=== PATIENT | male | born 1975 | race American Indian/Alaskan Native ===

== ENCOUNTER 2019-01-19 19:18 | Emergency (ER) | payer OTHER ==
[2019-01-19 20:09] VITALS: BP 148/85
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
== END 2019-01-19 21:01 | disposition left against medical advice (07) ==
LOC: EEVIPCON 19:18 → ED 19:18
DX: F23 Brief psychotic disorder (principal); E78.00 Pure hypercholesterolemia, unspecified; Z91.040 Latex allergy status; Z88.8 Allergy status to other drugs, medicaments and biological substances
CPT/HCPCS: 99283

== ENCOUNTER 2019-01-20 12:40 | Emergency (ER) | payer OTHER ==
[2019-01-20] MEDS ORDERED: GEODON IM ONE ×2 (13:07→20:33)
[2019-01-20 14:38] LABS: Basophils % (Auto) 0.9 % (0.0-1.8); Hematocrit 40.9 % (35.5-45.6); Hemoglobin 13.7 gm/dl (11.8-15.2); Lymphocytes # (Auto) 1.4 K/mm3 (1.2-5.4); Lymphocytes % (Auto) 39.6 % (13.4-35.0); Mean Corpuscular HGB Conc 34 % (32-34); Mean Corpuscular Volume 83 fl (84-94); Monocytes # (Auto) 0.4 K/mm3 (0.0-0.8); Monocytes % (Auto) 10.3 % (0.0-7.3); Platelet Count 211 K/mm3 (140-440); Red Blood Count 4.94 M/mm3 (3.65-5.03); Red Cell Distribution Width 15.8 % (13.2-15.2)
--- NOTE | 2019-01-20 14:58 | Emergency Department Report ---
ED General Adult HPI - General Chief complaint: Psych Stated complaint: ALTERED MH Time Seen by Provider: 01/20/19 13:07 Source: police Mode of arrival: Ambulatory Limitations: No Limitations - History of Present Illness Initial comments: Patient presents to the emergency department via police for psychiatric evaluation. Per the officer in the room the patient has been having abnormal behavior at home and exhibiting paranoia. The patient does have a history of schizophrenia. Patient states that voices are telling him to hurt himself. Per third libertarian the states this started within the last day or so -: Sudden Severity scale (0 -10): 0 Improves with: none Worsens with: none Associated Symptoms: denies other symptoms Treatments Prior to Arrival: none - Related Data Home Medications Medication Instructions Recorded Confirmed Last Taken No Known Home Medications [No 04/09/14 04/09/14 Unknown Reported Home Medications] Allergies Allergy/AdvReac Type Severity Reaction Status Date / Time chloroquine Allergy Itching Verified 04/09/14 05:22 latex Allergy Itching Verified 04/09/14 05:22 ED Review of Systems ROS: Stated complaint: ALTERED MH Other details as noted in HPI Comment: All other systems reviewed and negative Constitutional: denies: chills, fever Eyes: denies: eye pain, eye discharge, vision change ENT: denies: ear pain, throat pain Respiratory: denies: cough, shortness of breath, wheezing Cardiovascular: denies: chest pain, palpitations Endocrine: no symptoms reported Gastrointestinal: denies: abdominal pain, nausea, diarrhea Genitourinary: denies: urgency, dysuria Musculoskeletal: denies: back pain, joint swelling, arthralgia Skin: denies: rash, lesions Neurological: denies: headache, weakness, paresthesias Psychiatric: suicidal thoughts. denies: anxiety, depression Hematological/Lymphatic: denies: easy bleeding, easy bruising ED Past Medical Hx - Past Medical History Previous Medical History?: No Additional medical history: HIGH CHOLESTEROL - Social History Smoking Status: Unknown if ever smoked - Medications Home Medications: Home Medications Medication Instructions Recorded Confirmed Last Taken Type No Known Home Medications [No 04/09/14 04/09/14 Unknown History Reported Home Medications] ED Physical Exam - General Limitations: No Limitations General appearance: alert, in no apparent distress, other (aggressive behavior) - Head Head exam: Present: atraumatic, normocephalic - Eye Eye exam: Present: normal appearance - ENT ENT exam: Present: mucous membranes moist - Neck Neck exam: Present: normal inspection - Respiratory Respiratory exam: Present: normal lung sounds bilaterally. Absent: respiratory distress - Cardiovascular Cardiovascular Exam: Present: regular rate, normal rhythm. Absent: systolic murmur, diastolic murmur, rubs, gallop - GI/Abdominal GI/Abdominal exam: Present: soft, normal bowel sounds. Absent: distended, tenderness - Rectal Rectal exam: Present: deferred - Extremities Exam Extremities exam: Present: normal inspection - Back Exam Back exam: Present: normal inspection - Neurological Exam Neurological exam: Present: alert, oriented X3, CN II-XII intact. Absent: motor sensory deficit - Psychiatric Psychiatric exam: Present: suicidal ideation (tangential speech with paranoia) - Skin Skin exam: Present: warm, dry, intact, normal color. Absent: rash ED Course Vital Signs 01/20/19 01/20/19 12:56 13:30 Temperature 97.7 F Pulse Rate 113 H Respiratory 17 20 Rate Blood Pressure 170/145 [Left] O2 Sat by Pulse 97 97 Oximetry ED Medical Decision Making - Lab Data Result diagrams: 01/20/19 14:18 01/20/19 14:18 Lab Results 01/20/19 01/20/19 01/20/19 Range/Units 14:18 14:18 14:18 WBC 3.5 L (4.5-11.0) K/mm3 RBC 4.94 (3.65-5.03) M/mm3 Hgb 13.7 (11.8-15.2) gm/dl Hct 40.9 (35.5-45.6) % MCV 83 L (84-94) fl MCH 28 (28-32) pg MCHC 34 (32-34) % RDW 15.8 H (13.2-15.2) % Plt Count 211 (140-440) K/mm3 Lymph % (Auto) 39.6 H (13.4-35.0) % Wells % (Auto) 10.3 H (0.0-7.3) % Eos % (Auto) 0.0 (0.0-4.3) % Baso % (Auto) 0.9 (0.0-1.8) % Lymph # 1.4 (1.2-5.4) K/mm3 Wells # 0.4 (0.0-0.8) K/mm3 Eos # 0.0 (0.0-0.4) K/mm3 Baso # 0.0 (0.0-0.1) K/mm3 Seg Neutrophils % 49.2 (40.0-70.0) % Seg Neutrophils # 1.7 L (1.8-7.7) K/mm3 Sodium 142 (137-145) mmol/L Potassium 3.4 L (3.6-5.0) mmol/L Chloride 100.4 (98-107) mmol/L Carbon Dioxide 26 (22-30) mmol/L Anion Gap 19 mmol/L BUN 21 H (9-20) mg/dL Creatinine 1.1 (0.8-1.5) mg/dL Estimated GFR > 60 ml/min BUN/Creatinine Ratio 19 % Glucose 107 H (75-100) mg/dL Calcium 9.4 (8.4-10.2) mg/dL Total Bilirubin 0.30 (0.1-1.2) mg/dL AST 115 H (5-40) units/L ALT 55 (7-56) units/L Alkaline Phosphatase 59 (35-129) units/L Total Protein 7.4 (6.3-8.2) g/dL Albumin 4.8 (3.9-5) g/dL Albumin/Globulin Ratio 1.8 % Salicylates < 0.3 L (2.8-20.0) mg/dL Acetaminophen (10.0-30.0) ug/mL Plasma/Serum Alcohol (0-0.07) % 01/20/19 01/20/19 Range/Units 14:18 14:18 WBC (4.5-11.0) K/mm3 RBC (3.65-5.03) M/mm3 Hgb (11.8-15.2) gm/dl Hct (35.5-45.6) % MCV (84-94) fl MCH (28-32) pg MCHC (32-34) % RDW (13.2-15.2) % Plt Count (140-440) K/mm3 Lymph % (Auto) (13.4-35.0) % Wells % (Auto) (0.0-7.3) % Eos % (Auto) (0.0-4.3) % Baso % (Auto) (0.0-1.8) % Lymph # (1.2-5.4) K/mm3 Wells # (0.0-0.8) K/mm3 Eos # (0.0-0.4) K/mm3 Baso # (0.0-0.1) K/mm3 Seg Neutrophils % (40.0-70.0) % Seg Neutrophils # (1.8-7.7) K/mm3 Sodium (137-145) mmol/L Potassium (3.6-5.0) mmol/L Chloride (98-107) mmol/L Carbon Dioxide (22-30) mmol/L Anion Gap mmol/L BUN (9-20) mg/dL Creatinine (0.8-1.5) mg/dL Estimated GFR ml/min BUN/Creatinine Ratio % Glucose (75-100) mg/dL Calcium (8.4-10.2) mg/dL Total Bilirubin (0.1-1.2) mg/dL AST (5-40) units/L ALT (7-56) units/L Alkaline Phosphatase (35-129) units/L Total Protein (6.3-8.2) g/dL Albumin (3.9-5) g/dL Albumin/Globulin Ratio % Salicylates (2.8-20.0) mg/dL Acetaminophen < 5.0 L (10.0-30.0) ug/mL Plasma/Serum Alcohol < 0.01 (0-0.07) % - Medical Decision Making 1013 applied Medically cleared awaiting placement Critical care attestation.: If time is entered above; I have spent that time in minutes in the direct care of this critically ill patient, excluding procedure time. ED Disposition Clinical Impression: Paranoia (psychosis) Disposition: DC/TX-65 PSY HOSP/PSY UNIT Is pt being admited?: No Does the pt Need Aspirin: No Condition: Stable
[2019-01-20 15:00] LABS: Alanine Aminotransferase 55 units/L (7-56); Albumin 4.8 g/dL (3.9-5); BUN/Creatinine Ratio 19; Blood Urea Nitrogen 21 mg/dL (9-20); Calcium 9.4 mg/dL (8.4-10.2); Hemolysis Index 16
[2019-01-20] MEDS ORDERED: ATIVAN IM ONE (20:33)
[2019-01-20] MEDS ORDERED: ATIVAN ONE (20:36)
[2019-01-20] MEDS ORDERED: WATER FOR INJ Sterile (PF) 10 ML ONE (20:38)
[2019-01-21 01:22] LABS: Bilirubin,Urine NEG (Negative); Blood,Urine NEG (Negative); Color,Urine Yellow (Yellow); Mucus,Urine FEW /HPF; Protein,Urine <15 mg/dL mg/dL (Negative); Urobilinogen,Urine < 2.0 mg/dL (<2.0)
[2019-01-21 09:10] LABS: Bilirubin,Urine NEG (Negative); Blood,Urine NEG (Negative); Color,Urine Yellow (Yellow); Mucus,Urine FEW /HPF; Protein,Urine <15 mg/dL mg/dL (Negative)
--- NOTE | 2019-01-21 09:15 | Consultation ---
History of Present Illness - Reason for Consult Consult date: 01/21/19 Reason for consult: Mental Health EValuation Requesting physician: SHOSHANA SLADE - Chief Complaint Chief complaint: "I'm sacred" - History of Present Psychiatric Illness 43 y.o. male who presented to the ER for bizarre behavior. The patient was paranoid throughout the assessment. He appeared preoccupied. He would not answer questions logically. The patient had to be redirected several times to keep him on topic. The patient did state that "Al" is after him. At this time, the patient is a poor historian. No gestures of SI/HI's. Medications and Allergies Allergies Allergy/AdvReac Type Severity Reaction Status Date / Time chloroquine Allergy Itching Verified 04/09/14 05:22 latex Allergy Itching Verified 04/09/14 05:22 Home Medications Medication Instructions Recorded Confirmed Last Taken Type Lisinopril [Zestril] 20 mg PO QDAY 01/20/19 01/20/19 Unknown History clonazePAM 0.5 mg PO PRN PRN 01/20/19 01/20/19 Unknown History hydroCHLOROthiazide 25 mg PO QDAY 01/20/19 01/20/19 Unknown History [Hydrochlorothiazide] Past psychiatric history - Past Medical History Past Medical History: other (Unable to obtain ) Past Surgical History: Other (Unable to obtain ) - past Psychiatric treatment and history psychiatric treatment history: Unable to obtain a psy and fam psy hx. - Social History Social history: other (Unable to obtain ) Mental Status Exam - Vital signs Last Vital Signs Temp 97.6 F 01/21/19 07:37 Pulse 106 H 01/21/19 07:37 Resp 18 01/21/19 07:37 BP 162/102 01/21/19 07:37 Pulse Ox 98 01/21/19 07:37 - Exam Narrative exam: MSE: Appearance: in hospital attire Behavior: regular eye contact Speech: rapid Mood: anxious Affect: congruent to mood Thought Process: disorganized Thought Content: no gestures of SI/HI's, paranoid Motor Activity: sitting up in bed Cognition: A/O x 3 Insight: poor Judgment: poor R Results Result Diagrams: 01/20/19 14:18 01/20/19 14:18 Abnormal lab results 01/20/19 01/20/19 01/20/19 Range/Units 14:18 14:18 14:18 WBC 3.5 L (4.5-11.0) K/mm3 MCV 83 L (84-94) fl RDW 15.8 H (13.2-15.2) % Lymph % (Auto) 39.6 H (13.4-35.0) % Linn % (Auto) 10.3 H (0.0-7.3) % Seg Neutrophils # 1.7 L (1.8-7.7) K/mm3 Potassium 3.4 L (3.6-5.0) mmol/L BUN 21 H (9-20) mg/dL Glucose 107 H (75-100) mg/dL AST 115 H (5-40) units/L Salicylates < 0.3 L (2.8-20.0) mg/dL Acetaminophen (10.0-30.0) ug/mL 01/20/19 Range/Units 14:18 WBC (4.5-11.0) K/mm3 MCV (84-94) fl RDW (13.2-15.2) % Lymph % (Auto) (13.4-35.0) % Linn % (Auto) (0.0-7.3) % Seg Neutrophils # (1.8-7.7) K/mm3 Potassium (3.6-5.0) mmol/L BUN (9-20) mg/dL Glucose (75-100) mg/dL AST (5-40) units/L Salicylates (2.8-20.0) mg/dL Acetaminophen < 5.0 L (10.0-30.0) ug/mL All other labs normal. Assessment and Plan Assessment and plan: Impression: Unspecified Psychosis. Today the patient was paranoid throughout the assessment. AST elevated. UDS is pending. DDx R/O Delirium Recommendation/Plan: Continue 1013 and gather collateral information to help de termine proper treatment. Start Buspar 7.5 mg PO BID for anxiety and Thorazine 25 mg IM Q8hrs PRN for acute psychosis. Ammonia ordered. Dispo: The patient was referred to inpatient psy services. Staffed with Dr Isrrael Hartman,
[2019-01-21] MEDS ORDERED: THORAZINE IM PRN (09:21)
[2019-01-21 09:41] LABS: Amphetamine Screen,Urine PRESUMPTIVE NEGATIVE; Benzodiazepines Screen,Urine PRESUMPTIVE NEGATIVE; Cannabinoid Screen,Urine PRESUMPTIVE NEGATIVE; Cocaine Screen,Urine PRESUMPTIVE NEGATIVE; Methadone Screen,Urine PRESUMPTIVE NEGATIVE; Opiate Screen,Urine PRESUMPTIVE NEGATIVE
[2019-01-21] MEDS ORDERED: CATAPRES PO ONE (09:55)
[2019-01-21] MEDS ORDERED: NORVASC PO SCH (10:00)
[2019-01-21] MEDS ORDERED: BUSPAR PO SCH (10:00)
[2019-01-21] MEDS ORDERED: HCTZ PO SCH (10:00)
[2019-01-21 11:47] VITALS: BP 134/92
[2019-01-21] MEDS ORDERED: GEODON IM ONE ×2 (15:50→16:07)
[2019-01-21] MEDS ORDERED: WATER FOR INJ Sterile (PF) 10 ML ONE (15:50)
== END 2019-01-21 16:51 ==
LOC: ED 12:40 → EEVIPCON 12:40 → ED 01-21 16:51
DX: F22 Delusional disorders (principal); F20.9 Schizophrenia, unspecified; E78.00 Pure hypercholesterolemia, unspecified; Z88.8 Allergy status to other drugs, medicaments and biological substances; Z91.040 Latex allergy status
CPT/HCPCS: 36415; 80053; 80307; 81001; 82140; 85025; 96372; 99284; G0480; J2060; J3230; J3486; 80320

== ENCOUNTER 2019-01-21 16:06 | Inpatient (IN) | payer OTHER ==
[2019-01-21] MEDS: BENADRYL IM PRN (18:45)
[2019-01-21] MEDS: ATIVAN IM PRN (18:45)
[2019-01-22] MEDS: BENADRYL IM PRN ×2 (02:05→15:04)
[2019-01-22] MEDS: ATIVAN IM PRN ×2 (02:06→15:05)
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
[2019-01-23] MEDS: ATIVAN IM PRN (00:49)
[2019-01-23] MEDS: BENADRYL IM PRN (00:49)
--- NOTE | 2019-01-23 19:00 | Progress Note ---
Subjective Date of service: 01/23/19 Principal diagnosis: Paranoid Schizophrenia Subjective Comment: Patient is talkative, grandiose, delusional, paranoid, tangential and refuses to take his medications. He believes people including his , extended family and hospital staffs are conspiring against him. He denies hallucinations, SI/HI. Objective - Criteria for Continued Treatment Criteria for Continued Treatment: Improving Level of Functioning, Understanding Diagnosis and need for Medication, Improving Treatment / Medication Compliance, Confronting Denial of Illness, Stablizing Level of Functioning, Improving Emotional/Socia - Mental Status Mental Status: Alert - Objective Observation Participation Level: Minimal Reason(s) For Not Participating: Behaviors Assessment and Plan - Patient Problems (1) Paranoid schizophrenia Current Visit: Yes Status: Acute Plan to address problem: Continue inpatient psychiatric treatment for medication adjustment and close monitoring The patient's behavior, mood, sleep and appetite will be closely monitored. Patient will be enrolled in individual and group therapeutic sessions and encouraged to attend. Patient will be provided with a safe and structured environment. Patient's physical health needs will be addressed by the Hospitalist. Social Assessment will be completed and the Gear Cutter will work with patient and family to ensure a suitable and safe disposition Medication adjustment will be made as clinically indicated Continue Seroquel 200mg bid for Schizophrenia Add Depakote ER 1000mg qhs as patient is manic The patient agreed on the treatment plan, understood the risk, benefit, alternative treatment, potential consequence of no treatment, and gave informed consent.
[2019-01-24] MEDS: ATIVAN IM PRN (03:57)
[2019-01-24] MEDS: BENADRYL IM PRN (03:58)
[2019-01-25] MEDS: HALDOL IM PRN (06:53)
[2019-01-25] MEDS: ATIVAN IM PRN (06:54)
--- NOTE | 2019-01-25 06:55 | Progress Note ---
Subjective Date of service: 01/24/19 Principal diagnosis: Paranoid Schizophrenia Subjective Comment: No improvement. Patient continues to be talkative, grandiose, delusional, paranoid, tangential and refuses to take his medications. He believes people including his , extended family and hospital staffs are conspiring against him. He denies hallucinations, SI/HI. His visited and encouraged him to take his medications. Objective - Criteria for Continued Treatment Criteria for Continued Treatment: Improving Level of Functioning, Understanding Diagnosis and need for Medication, Improving Treatment / Medication Compliance, Confronting Denial of Illness, Stablizing Level of Functioning, Improving Emotional/Socia - Mental Status Mental Status: Oriented x 3 - Objective Observation Participation Level: Minimal Reason(s) For Not Participating: Behaviors Assessment and Plan - Patient Problems (1) Paranoid schizophrenia Current Visit: Yes Status: Acute Plan to address problem: Continue inpatient psychiatric treatment for medication adjustment and close monitoring The patient's behavior, mood, sleep and appetite will be closely monitored. Patient will be enrolled in individual and group therapeutic sessions and encouraged to attend. Patient will be provided with a safe and structured environment. Patient's physical health needs will be addressed by the Hospitalist. Social Assessment will be completed and the Exercise Physiology Professor will work with patient and family to ensure a suitable and safe disposition Medication adjustment will be made as clinically indicated Continue Seroquel 200mg bid for Schizophrenia Continue Depakote ER 1000mg qhs as patient is manic The patient agreed on the treatment plan, understood the risk, benefit, alternative treatment, potential consequence of no treatment, and gave informed consent.
[2019-01-25] MEDS ORDERED: HALDOL PO PRN (10:27)
--- NOTE | 2019-01-25 10:41 | Progress Note ---
Subjective Date of service: 01/25/19 Principal diagnosis: Paranoid Schizophrenia Subjective Comment: Patient is disruptive, disorganized and bizarre. He urinates on the floor by the Nursing station. He is talkative, grandiose, delusional, paranoid, tangential and refuses to take Depakote. He is paranoid. He denies hallucinations. No SI/HI. Objective - Criteria for Continued Treatment Criteria for Continued Treatment: Improving Level of Functioning, Understanding Diagnosis and need for Medication, Improving Treatment / Medication Compliance, Stablizing Level of Functioning, Improving Emotional/Socia - Mental Status Mental Status: Oriented x 3 - Objective Observation Participation Level: Minimal Reason(s) For Not Participating: Behaviors Assessment and Plan - Patient Problems (1) Paranoid schizophrenia Current Visit: Yes Status: Acute Plan to address problem: Continue inpatient psychiatric treatment for medication adjustment and close monitoring The patient's behavior, mood, sleep and appetite will be closely monitored. Patient will be enrolled in individual and group therapeutic sessions and encouraged to attend. Patient will be provided with a safe and structured environment. Patient's physical health needs will be addressed by the Hospitalist. Social Assessment will be completed and the Acid Plant Helper will work with patient and family to ensure a suitable and safe disposition Medication adjustment will be made as clinically indicated Increase Seroquel to 300mg bid for Schizophrenia Continue Depakote ER 1000mg qhs as patient is manic The patient agreed on the treatment plan, understood the risk, benefit, alternative treatment, potential consequence of no treatment, and gave informed consent.
--- NOTE | 2019-01-26 10:27 | Progress Note ---
Subjective Date of service: 01/26/19 Principal diagnosis: Paranoid Schizophrenia Subjective Comment: Patient is uncooperative and wants to leave the hospital, hence 1014 was initiated by me as he continues to be disruptive, disorganized and bizarre. He is talkative, grandiose, delusional, paranoid, tangential and refuses to take Depakote. He is paranoid. He denies hallucinations. No SI/HI. Objective - Criteria for Continued Treatment Criteria for Continued Treatment: Improving Level of Functioning, Understanding Diagnosis and need for Medication, Improving Treatment / Medication Compliance, Confronting Denial of Illness, Stablizing Level of Functioning, Improving Emotional/Socia - Mental Status Mental Status: Oriented x 3 - Objective Observation Participation Level: Minimal Reason(s) For Not Participating: Behaviors Assessment and Plan - Patient Problems (1) Paranoid schizophrenia Current Visit: Yes Status: Acute Plan to address problem: Continue inpatient psychiatric treatment for medication adjustment and close monitoring The patient's behavior, mood, sleep and appetite will be closely monitored. Patient will be enrolled in individual and group therapeutic sessions and e ncouraged to attend. Patient will be provided with a safe and structured environment. Patient's physical health needs will be addressed by the Hospitalist. Social Assessment will be completed and the Wax Room Supervisor will work with patient and family to ensure a suitable and safe disposition Medication adjustment will be made as clinically indicated Continue Seroquel to 300mg bid for Schizophrenia Continue Depakote ER 1000mg qhs as patient is manic The patient agreed on the treatment plan, understood the risk, benefit, alternative treatment, potential consequence of no treatment, and gave informed consent.
[2019-01-26] MEDS: ATIVAN PO PRN (21:45)
--- NOTE | 2019-01-27 10:32 | Progress Note ---
Subjective Date of service: 01/27/19 Principal diagnosis: Paranoid Schizophrenia Subjective Comment: Patient is calmer but continues to be delusional, and very paranoid. He is still refusing to take Depakote and only takes 100mg of prescribed 300mg Seroquel. He denies hallucinations. No SI/HI. Objective - Criteria for Continued Treatment Criteria for Continued Treatment: Improving Level of Functioning, Understanding Diagnosis and need for Medication, Improving Treatment / Medication Compliance, Confronting Denial of Illness, Stablizing Level of Functioning, Improving Emotional/Socia - Mental Status Mental Status: Oriented x 3 - Objective Observation Participation Level: Minimal Reason(s) For Not Participating: Behaviors Assessment and Plan - Patient Problems (1) Paranoid schizophrenia Current Visit: Yes Status: Acute Plan to address problem: Continue inpatient psychiatric treatment for medication adjustment and close monitoring The patient's behavior, mood, sleep and appetite will be closely monitored. Patient will be enrolled in individual and group therapeutic sessions and encouraged to attend. Patient will be provided with a safe and structured environment. Patient's physical health needs will be addressed by the Hospitalist. Social Assessment will be completed and the It Associate will work with patient and family to ensure a suitable and safe disposition Medication adjustment will be made as clinically indicated Continue Seroquel to 300mg bid for Schizophrenia Continue Depakote ER 1000mg qhs as patient is manic The patient agreed on the treatment plan, understood the risk, benefit, alternative treatment, potential consequence of no treatment, and gave informed consent.
[2019-01-27] MEDS ORDERED: HYDROCHLOROTHIAZIDE 25 MG PO PRN (12:52)
--- NOTE | 2019-01-27 12:53 | Consultation ---
History of Present Illness - Reason for Consult Consult date: 01/27/19 HTN Requesting physician: LI STOREY - History of Present Illness 43 YO Male with HTN, HLD admitted to [facility] for Schizophrenia. Pt seen and evaluated in his room. Pt denies fever, chills, CP, Palpitations, NVD, Unilateral leg pain, calf pain, productive cough, skin rash or recent ill contacts. Pt resting comfortably and is cooperative with exam and interview. No reported nursing events. 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 No legal problems. No access to guns. ) Family history: hypertension Medications and Allergies Allergies Allergy/AdvReac Type Severity Reaction Status Date / Time chloroquine Allergy Itching Verified 04/09/14 05:22 latex Allergy Itching Verified 04/09/14 05:22 Home Medications Medication Instructions Recorded Confirmed Last Taken Type Lisinopril [Zestril] 20 mg PO QDAY 01/20/19 01/22/19 Unknown History clonazePAM 0.5 mg PO PRN PRN 01/20/19 01/22/19 Unknown History hydroCHLOROthiazide 25 mg PO PRN PRN 01/20/19 01/27/19 Unknown History [Hydrochlorothiazide] Atorvastatin 20 mg PO QHS 01/22/19 01/22/19 Unknown History Flomax 0.4 mg PO DAILY 01/22/19 01/22/19 Unknown History Active Meds: Active Medications Diphenhydramine HCl (Benadryl) 50 mg IM Q6H PRN PRN Reason: AGITATION Last Admin: 01/24/19 03:58 Dose: 50 mg Documented by: Divalproex Sodium (Depakote Er) 1,000 mg PO QPM MEÑO Last Admin: 01/26/19 18:55 Dose: Not Given Documented by: Haloperidol (Haldol) 5 mg PO Q6H PRN PRN Reason: Agitation Haloperidol Lactate (Haldol) 5 mg IM Q6H PRN PRN Reason: Agitation Last Admin: 01/25/19 06:53 Dose: 5 mg Documented by: Lisinopril (Zestril) 20 mg PO QDAY [facility] Lorazepam (Ativan) 2 mg IM Q6H PRN PRN Reason: Agitation Last Admin: 01/25/19 06:54 Dose: 2 mg Documented by: Lorazepam (Ativan) 2 mg PO Q6H PRN PRN Reason: Agitation Last Admin: 01/26/19 21:45 Dose: 2 mg Documented by: Miscellaneous Medication (Atorvastatin) 20 mg PO QHS [facility] Miscellaneous Medication (Hydrochlorothiazide [Hydrochlorothiazide]) 25 mg PO PRN PRN PRN Reason: Increased Blood Pressure Miscellaneous Medication (Flomax) 0.4 mg PO DAILY [facility] Quetiapine Fumarate (Seroquel) 300 mg PO BID [facility] Last Admin: 01/27/19 09:26 Dose: 100 mg Documented by: Review of Systems Constitutional: no weight loss, no weight gain, no fever, no chills Ears, nose, mouth and throat: no ear pain, no tinnitis, no decreased hearing, no nose pain, no nasal congestion Cardiovascular: no chest pain, no orthopnea, no palpitations, no rapid/irregular heart beat, no edema, no lightheadedness Respiratory: no cough, no cough with sputum, no excessive sputum, no hemoptysis, no shortness of breath Gastrointestinal: no abdominal pain, no nausea, no vomiting, no diarrhea, no constipation Genitourinary Male: no dysuria, no hematuria, no flank pain, no discharge, no urinary frequency Rectal: no pain, no incontinence, no bleeding Musculoskeletal: no neck stiffness, no neck pain, no shooting arm pain Integumentary: no rash, no pruritis, no redness, no sores, no wounds Neurological: no transient paralysis, no paralysis, no weakness, no parathesias, no numbness, no tingling, no seizures, no syncope Psychiatric: no anxiety, no memory loss, no change in sleep habits, no sleep disturbances, no insomnia, no hypersomnia, no change in appetite, no change in libido Endocrine: no cold intolerance, no heat intolerance, no polyphagia, no polydipsia, no polyuria, no excessive sweating Hematologic/Lymphatic: no easy bruising, no lymphedema Allergic/Immunologic: no urticaria, no allergic rhinitis, no persistent infections Exam - Constitutional Vitals: Temp Pulse Resp BP Pulse Ox 98.6 F 105 H 18 140/90 100 01/27/19 11:57 01/27/19 11:57 01/27/19 11:57 01/27/19 11:57 01/27/19 11:57 General appearance: Present: no acute distress, well-nourished - EENT Eyes: Present: PERRL ENT: hearing intact, clear oral mucosa - Neck Neck: Present: supple, normal ROM - Respiratory Respiratory effort: normal Respiratory: bilateral: CTA - Cardiovascular Heart Sounds: Present: S1 & S2. Absent: rub, click - Extremities Extremities: pulses symmetrical, No edema Peripheral Pulses: within normal limits - Abdominal General gastrointestinal: Present: soft, non-tender, non-distended, normal bowel sounds Male genitourinary: Present: normal - Integumentary Integumentary: Present: clear, warm, dry - Musculoskeletal Musculoskeletal: gait normal, strength equal bilaterally - Psychiatric Psychiatric: appropriate mood/affect, intact judgment & insight - Neurologic Neurologic: CNII-XII intact, moves all extremities Assessment and Plan - Patient Problems (1) HTN (hypertension) Current Visit: Yes Status: Acute Qualifiers: Hypertension type: essential hypertension Qualified Code(s): I10 - Essential (primary) hypertension Plan to address problem: Monitor BP q shift, continue HCTZ, (2) HLD (hyperlipidemia) Current Visit: Yes Status: Acute Qualifiers: Hyperlipidemia type: mixed hyperlipidemia Qualified Code(s): E78.2 - Mixed hyperlipidemia Plan to address problem: Low cholesterol diet,
[2019-01-27] MEDS ORDERED: HCTZ PO PRN (13:22)
[2019-01-27] MEDS ORDERED: ZESTRIL ONE (14:37)
[2019-01-27] MEDS: ZESTRIL PO SCH (14:38)
[2019-01-27] MEDS ORDERED: NON-FORMULARY (Atorvastatin 20 MG) PO SCH (22:00)
[2019-01-27] MEDS: ATIVAN PO PRN (23:36)
[2019-01-28] MEDS: HALDOL IM PRN (00:07)
[2019-01-28] MEDS: ATIVAN IM PRN (00:08)
[2019-01-28] MEDS: BENADRYL IM PRN (00:08)
[2019-01-28] MEDS: ZESTRIL PO SCH (09:02)
[2019-01-28] MEDS: FLOMAX PO SCH ×2 (09:03→10:00)
[2019-01-28] MEDS ORDERED: NON-FORMULARY (Flomax 0.4 MG) PO SCH (10:00)
--- NOTE | 2019-01-28 11:02 | Progress Note ---
Subjective Date of service: 01/28/19 Principal diagnosis: Paranoid Schizophrenia Subjective Comment: Patient is calmer and was able to discuss his treatment with me this morning. He does not want to Seroquel and Depakote because of sedative effect of these medications. He consents to taking Abilify which is not sedating. He is still delusional, and very paranoid. He denies hallucinations. No SI/HI. Objective - Criteria for Continued Treatment Criteria for Continued Treatment: Improving Level of Functioning, Improving Treatment / Medication Compliance, Confronting Denial of Illness, Stablizing Level of Functioning, Improving Emotional/Socia - Mental Status Mental Status: Oriented x 3 - Objective Observation Participation Level: Moderate Assessment and Plan - Patient Problems (1) Paranoid schizophrenia Current Visit: Yes Status: Acute Plan to address problem: Continue inpatient psychiatric treatment for medication adjustment and close monitoring The patient's behavior, mood, sleep and appetite will be closely monitored. Patient will be enrolled in individual and group therapeutic sessions and encouraged to attend. Patient will be provided with a safe and structured environment. Patient's physical health needs will be addressed by the Hospitalist. Social Assessment will be completed and the Package Delivery Driver will work with patient and family to ensure a suitable and safe disposition Medication adjustment will be made as clinically indicated Discontinue Seroquel and depakote Start Abilify 10mg qam The patient agreed on the treatment plan, understood the risk, benefit, alternative treatment, potential consequence of no treatment, and gave informed consent.
[2019-01-28] MEDS ORDERED: BENADRYL PO PRN (11:04)
[2019-01-28] MEDS: ABILIFY PO SCH (17:22)
--- NOTE | 2019-01-29 08:42 | Progress Note ---
Subjective Date of service: 01/29/19 Principal diagnosis: Paranoid Schizophrenia Subjective Comment: Patient is calmer and taking Abilify. He is still delusional. He denies hallucinations. No SI/HI. Objective - Criteria for Continued Treatment Criteria for Continued Treatment: Improving Level of Functioning, Understanding Diagnosis and need for Medication, Improving Treatment / Medication Compliance, Confronting Denial of Illness, Stablizing Level of Functioning, Improving Emotional/Socia - Mental Status Mental Status: Alert - Objective Observation Participation Level: Full Assessment and Plan - Patient Problems (1) Paranoid schizophrenia Current Visit: Yes Status: Acute Plan to address problem: Continue inpatient psychiatric treatment for medication adjustment and close monitoring The patient's behavior, mood, sleep and appetite will be closely monitored. Patient will be enrolled in individual and group therapeutic sessions and encouraged to attend. Patient will be provided with a safe and structured environment. Patient's physical health needs will be addressed by the Hospitalist. Social Assessment will be completed and the Supervisor Water Treatment Plant will work with patient and family to ensure a suitable and safe disposition Medication adjustment will be made as clinically indicated Continue Abilify 10mg qam The patient agreed on the treatment plan, understood the risk, benefit, alternative treatment, potential consequence of no treatment, and gave informed consent.
[2019-01-29] MEDS: FLOMAX PO SCH (10:07)
[2019-01-29] MEDS: ABILIFY PO SCH (10:07)
[2019-01-29] MEDS: ZESTRIL PO SCH (10:39)
[2019-01-29] MEDS: TYLENOL PO PRN (11:51)
[2019-01-30] MEDS: ZESTRIL PO SCH (10:08)
[2019-01-30] MEDS: FLOMAX PO SCH (10:08)
[2019-01-30] MEDS: ABILIFY PO SCH ×2 (11:54→18:47)
[2019-01-30] MEDS: TYLENOL PO PRN (12:12)
--- NOTE | 2019-01-30 20:19 | Progress Note ---
Subjective Date of service: 01/30/19 Principal diagnosis: Paranoid Schizophrenia Subjective Comment: Patient continues to improve. He is appreciative, pleasant and cooperative. He is compliant with his medications and denies side effects. No delusional statements. He denies hallucinations. No SI/HI. called to report that patient is improved and at baseline. Objective - Criteria for Continued Treatment Criteria for Continued Treatment: Improving Level of Functioning, Understanding Diagnosis and need for Medication, Improving Treatment / Medication Compliance, Stablizing Level of Functioning, Improving Emotional/Socia - Mental Status Mental Status: Oriented x 3 - Objective Observation Participation Level: Full Assessment and Plan - Patient Problems (1) Paranoid schizophrenia Current Visit: Yes Status: Acute Plan to address problem: Continue inpatient psychiatric treatment for medication adjustment and close monitoring The patient's behavior, mood, sleep and appetite will be closely monitored. Patient will be enrolled in individual and group therapeutic sessions and encouraged to attend. Patient will be provided with a safe and structured environment. Patient's physical health needs will be addressed by the Hospitalist. Social Assessment will be completed and the Filling Carrier will work with patient and family to ensure a suitable and safe disposition Medication adjustment will be made as clinically indicated Continue Abilify 10mg qam The patient agreed on the treatment plan, understood the risk, benefit, alternative treatment, potential consequence of no treatment, and gave informed consent. LVOS 2 days
[2019-01-31] MEDS: ZESTRIL PO SCH (09:34)
[2019-01-31] MEDS: FLOMAX PO SCH (09:34)
[2019-01-31] MEDS ORDERED: ABILIFY PO SCH (22:00)
[2019-02-01 08:01] VITALS: BP 122/89
--- NOTE | 2019-02-01 09:07 | Progress Note ---
Subjective Date of service: 01/31/19 Principal diagnosis: Paranoid Schizophrenia Subjective Comment: Patient continues to improve. He is appreciative, pleasant and cooperative. He is compliant with his medications and denies side effects. No delusional statements. He denies hallucinations. No SI/HI. Will plan to discharge in am tomorrow if he continues to do well. Objective - Criteria for Continued Treatment Criteria for Continued Treatment: Improving Level of Functioning, Stablizing Level of Functioning - Mental Status Mental Status: Alert - Objective Observation Participation Level: Full Assessment and Plan - Patient Problems (1) Paranoid schizophrenia Current Visit: Yes Status: Acute Plan to address problem: Continue inpatient psychiatric treatment for medication adjustment and close monitoring The patient's behavior, mood, sleep and appetite will be closely monitored. Patient will be enrolled in individual and group therapeutic sessions and encouraged to attend. Patient will be provided with a safe and structured environment. Patient's physical health needs will be addressed by the Hospitalist. Social Assessment will be completed and the Program Director [employer] will work with patient and family to ensure a suitable and safe disposition Medication adjustment will be made as clinically indicated Continue Abilify 10mg qam The patient agreed on the treatment plan, understood the risk, benefit, alternat [place] treatment, potential consequence of no treatment, and gave informed consent. ELOS 1 day
--- NOTE | 2019-02-01 09:12 | Discharge Summary ---
Providers - Providers Date of Admission: 01/21/19 16:35 Date of discharge: 02/01/19 Attending physician: LI STOREY MD 01/25/19 07:43 Consult to Dietitian/Nutrition [CONS] Routine Physician Instructions: Reason For Exam: Reason for Consult: Diet education Primary care physician: [facility], Hospitalization Reason for admission: Bizarre behavior, paranoid and confused Admitting Diagnosis: F31.2 - BIPOLAR DISORD, CRNT EPISODE MANIC SEVERE W PSYCH FEATURES Condition: Stable Hospital course: The patient was provided inpatient psychiatric treatment with safe and supportive environment, group therapy, individual counseling, psychiatric medication, medication adjustment, adverse effect monitor, medical evaluation, medical treatment, social service assessment, family/social support meeting, placement assessment and psycho-education. The patients mood, anxiety, thoughts, stress management skill, cognition, impulse/anger control, motivation, understanding of disease, compliance to treatment and appreciation on family/social support are improved and stabilized. At the time of discharge, the patient had no suicidal ideas, no homicidal ideas, no aggressive thoughts, no endangering behavior and no debilitating adverse effects. The patient agreed on the treatment plan, understood the risk, benefit, alternative treatment, potential consequence of no treatment, and gave informed consent. The patient was advised to be compliant with medications, not to use drugs and not to drink alcohol. The patient understands that if suicidal ideas, homicidal ideas, or any endangering thoughts arise, the patient should immediately seek for emergent assistance including but not limited to crisis hot line and emergency room. Follow up with out-patient Psychiatrist and PCP within 14 - 21 days of discharge. Disposition: - TO HOME OR SELFCARE Allergies/Adverse Reactions: Allergies chloroquine Allergy (Verified 04/09/14 05:22) Itching latex Allergy (Verified 04/09/14 05:22) Itching Vital Signs: Last Vital Signs Temp 98.4 F 02/01/19 07:36 Pulse 91 H 02/01/19 07:36 Resp 16 02/01/19 07:36 BP 122/89 02/01/19 07:36 Pulse Ox 98 02/01/19 07:36 - Discharge Diagnoses (1) Paranoid schizophrenia Status: Acute Core Measure Documentation - Palliative Care Palliative Care/ Comfort Measures: Not Applicable - Core Measures Any of the following diagnoses?: none - VTE Discharge Requirements Deep Vein Thrombosis/Pulmonary Embolism Present on Admission: No Has pt received <5 days of overlap therapy or INR<2.0: No Anticoagulant overlap therapy prescribed at discharge: No Contraindication No Overlap Therapy order at DC: Not Indicated Exam - Constitutional Vitals: Temp Pulse Resp BP Pulse Ox 98.4 F 91 H 16 122/89 98 02/01/19 07:36 02/01/19 07:36 02/01/19 07:36 02/01/19 07:36 02/01/19 07:36 General appearance: Present: no acute distress, well-nourished - EENT Eyes: Present: PERRL, EOM intact ENT: hearing intact, clear oral mucosa, dentition normal - Neck Neck: Present: supple, normal ROM - Respiratory Respiratory effort: normal Plan Activity: no restrictions Weight Bearing Status: Full Weight Bearing Diet: regular [facility] - 7 Days Prescriptions: ARIPiprazole [Abilify TAB] 10 mg PO QHS #30 tablet
[2019-02-01] MEDS: ZESTRIL PO SCH (09:38)
[2019-02-01] MEDS: FLOMAX PO SCH (09:38)
== END 2019-02-01 11:35 | disposition home or self-care (01) | DRG 885 ==
LOC: UNDOADMIN 16:06 → 3A 16:06 → 5A 16:35
PROVIDERS: ADMIT Psychiatry & Neurology Psychiatry; ATTEND Psychiatry & Neurology Psychiatry
DX: F20.0 Paranoid schizophrenia (principal); I10 Essential (primary) hypertension; E78.2 Mixed hyperlipidemia; Z82.49 Family history of ischemic heart disease and other diseases of the circulatory system; Z88.8 Allergy status to other drugs, medicaments and biological substances; Z91.040 Latex allergy status; Z79.899 Other long term (current) drug therapy
CPT/HCPCS: 36415; 80053; 80307; 80320; 81001; 82140; 85025; 96372; 99283; 99284; G0378; A9270-GY; G0480; J1200; J1630; J2060; J3230; J3486